=== PATIENT | male | born 1955 | race Caucasian/White ===

== ENCOUNTER 2017-02-24 17:31 | Emergency (ER) | payer BC ==
--- NOTE | ~2017-02-24 | CR72 ---
[facility] A Service of [facility] & [facility] RADIOLOGY TEXT RESULTS PATIENT: MAYRA ODONNELL LOCATION: SED : 57 UNIT #: [id number] AGE: [address]: Gilbert Carroll MD SEX: M ORDER DR: [id number] [place] [id number] E MR#: [id number] Acc #: [id number] NAME: MAYRA ODONNELL : 1955 SEX: M STUDY DATE/TIME: 02/24/2017 18:47 UNIT: SED ROOM: STUDY DESCRIPTION: CR Chest Single View Portable Attending Physician: Gilbert Carroll M.D. Ordering Physician: Gilbert Carroll M.D. Primary Care Physician: Dyan Ulloa M.D. MEDICAL IMAGING REPORT This report is preliminary unless electronic signature is present. EXAM Portable chest HISTORY Back pain for 4 days. FINDINGS A single AP portable view of the chest shows both lungs to be clear. The heart is normal in size. The mediastinal contour is normal. No significant bone abnormalities are seen. IMPRESSION Normal portable chest. Dictated by... Otis Monzon M.D. THIS IS AN ELECTRONICALLY VERIFIED REPORT Otis Monzon M.D. at 02/24/2017 11:16 PM DFL/pcl TD: 02/24/2017 22:15 JOB #: [id number] MEDICAL IMAGING REPORT Page 1 of 1
[2017-02-24 19:05] LABS: BASOPHIL# 0.1 X10e3 (0-0.3); BASOPHIL% 0.8 % (0-2.5); EOSINOPHIL# 0.1 X10e3 (0-0.7); EOSINOPHIL% 1.9 % (0.0-7.0); HEMATOCRIT 46.6 % (38.0-50.0); HEMOGLOBIN 15.8 gm/dL (13.0-16.0); LYMPHOCYTE# 2.2 X10e3 (1.0-3.5); LYMPHOCYTE% 30.8 % (17.0-45.0); MEAN CORPUSCULAR HEMOGLOBIN 30.8 PG (28-34); MEAN CORPUSCULAR HGB CONC 33.8 g/dL (30-36); MEAN PLATELET VOLUME 8.6 FL (6.5-11.5); MONOCYTE# 0.6 X10e3 (0-1.0); MONOCYTE% 8.2 % (3.0-12.0); NEUTROPHIL# 4.1 X10e3 (1.5-7.1); NEUTROPHIL% 58.3 % (40-75); PLATELET COUNT 244 X10e3 (140-420); RED BLOOD COUNT 5.12 X10e (3.90-5.60); RED CELL DISTRIBUTION WIDTH 13.9 % (11.0-15.5)
[2017-02-24 19:13] LABS: DIFF IND NO
[2017-02-24 19:14] LABS: URINE SOURCE CLEAN CATCH
[2017-02-24 19:17] LABS: URINE APPEARANCE CLEAR; URINE BILIRUBIN NEG (NEG); URINE BLOOD NEG (NEG); URINE COLOR YELLOW; URINE GLUCOSE NEG (NORM); URINE KETONE NEG (NEG); URINE LEUKOCYTE ESTERASE NEG (NEG); URINE NITRATE NEG (NEG); URINE PH 5.5 (5-8); URINE PROTEIN NEG (NEG); URINE SPECIFIC GRAVITY >=1.030 (1.003-1.035); URINE UROBILINOGEN 0.2 MG/DL (NORM)
[2017-02-24 19:21] LABS: MICRO INDICATED? NO
[2017-02-24 19:26] LABS: ALBUMIN SERUM 4.1 g/dL (3.5-5.0); BILIRUBIN, DIRECT 0.1 mg/dL (0.0-0.2); BILIRUBIN,INDIRECT 0.5 mg/dL (0.0-0.9); BILIRUBIN,TOTAL 0.6 mg/dL (0.2-2.0); CALCIUM SERUM 8.5 mg/dL (8.4-10.2); GLOM FILT RATE Estimated 81.5 mL/min (>60); POTASSIUM 3.8 mmol/L (3.5-5.1); PROTEIN TOTAL SERUM 7.5 g/dL (6.0-8.3)
== END 2017-02-24 19:58 | disposition home or self-care (01) ==
LOC: SED 17:31
PROVIDERS: Emergency Medicine
DX: R10.9 Unspecified abdominal pain (principal); M54.9 Dorsalgia, unspecified; F17.210 Nicotine dependence, cigarettes, uncomplicated
CPT/HCPCS: 36415; 71010; 80048; 80076; 81003; 83690; 85025; 86677; 96361; 96374; 96375; 99284; J1885; J2405